=== PATIENT | female | born 1950 | race Caucasian/White ===

== ENCOUNTER 2022-05-20 09:02 | Inpatient (IN) ==
[~2022-05-20 09:02] MED LIST: Buffered Lidocaine 1% SYRIN 1 ml INTRADERM ONE; Dexamethasone IV 4 MG/ML VIAL 1 ml VIAL ONE; Famotidine IV 10 MG/ML 2 ml VIAL (20 mg) IV ONE; Lactated Ringers 1000 ml BAG 1,000 ML IV SCH; Lidocaine 2% PF 5 ML VIAL ONE; Midazolam 5 mg/5 ml VIAL 1 mg/ml 5 ml VIAL (5 mg) ONE; Ondansetron 4 mg VIAL 2 MG/ML 2 ml VIAL ONE; Phenylephrine IV 10 MG/ML 1 ml VIAL ONE; Scopolamine 1 mg/72hr PATCH TRANSDERM ONE; Sterile Water for Inj 10 ML ONE; fentaNYL 100 mcg/2 ml 50 MCG/ML VIAL ONE
[2022-05-20] MEDS ORDERED: Scopolamine 1 mg/72hr PATCH ONE (09:08)
[2022-05-20] MEDS ORDERED: ceFAZolin 2 GM PREMIX 2 GM/50 ML BAG ONE (09:08)
[2022-05-20] MEDS ORDERED: Famotidine IV 10 MG/ML 2 ml VIAL (20 mg) ONE (09:08)
[2022-05-20] MEDS ORDERED: fentaNYL 100 mcg/2 ml 50 MCG/ML VIAL ONE (10:15)
[2022-05-20] MEDS ORDERED: Midazolam 2 mg/2 ml VIAL 1 mg/ml 2 ml VIAL (2 mg) ONE (10:16)
[2022-05-20] MEDS ORDERED: ROPIVACAINE 5 MG/ML 30 ML BTL (0.5%) ONE ×2 (10:17→10:55)
[2022-05-20] MEDS ORDERED: Dextrose 50% Syringe 50 ml 25 GM/50 ML SYRINGE IV PUSH PRN (10:28)
[2022-05-20] MEDS ORDERED: Naloxone 0.4 mg VIAL 0.4 mg/ml 1 ml VIAL IV PRN (11:31)
[2022-05-20] MEDS ORDERED: fentaNYL 100 mcg/2 ml 50 MCG/ML VIAL IV PRN (11:31)
[2022-05-20] MEDS ORDERED: oxyCODONE/Acetamin 5/325 mg TAB PO PRN (11:31)
[2022-05-20] MEDS ORDERED: Propofol 10 MG/ML 20 ML BTL ONE (13:35)
[2022-05-20] MEDS ORDERED: Ondansetron ODT 4 mg TAB 4 MG TAB PO PRN (14:07)
[2022-05-20] MEDS ORDERED: Magnesium Hydroxide LIQ 30 ML UDC PO PRN (14:07)
[2022-05-20] MEDS ORDERED: Ondansetron 4 mg VIAL 2 MG/ML 2 ml VIAL IV PRN (14:07)
[2022-05-20] MEDS ORDERED: Lactulose 30 ml UDC PO PRN (14:07)
[2022-05-20] MEDS ORDERED: Morphine 2 MG/ML SYRINGE IV PRN (14:07)
[2022-05-20] MEDS ORDERED: Albuterol HFA INHALER 8 gm MDI INH PRN (14:48)
[2022-05-20] MEDS: Lactated Ringers 1000 ml BAG 1,000 ML IV SCH (16:38)
[2022-05-20] MEDS: Magnesium Hydroxide LIQ 30 ML UDC PO SCH (20:06)
[2022-05-20] MEDS: ceFAZolin 1 GM ADVAN 1 GM in NS 0.9% 50 ML 50 ML IVPB SCH (20:35)
[2022-05-20] MEDS ORDERED: CMC:Simvastatin 20 mg TAB (NF) PO SCH (21:00)
[2022-05-21] MEDS: Lactated Ringers 1000 ml BAG 1,000 ML IV SCH (03:02)
[2022-05-21] MEDS: ceFAZolin 1 GM ADVAN 1 GM in NS 0.9% 50 ML 50 ML IVPB SCH ×2 (04:44→11:45)
[2022-05-21 06:01] LABS: Hematocrit 29 % (35-47); Hemoglobin 9.7 g/dL (12.0-16.0); Mean Platelet Volume 7.2 fL (7.4-10.4); Platelet Count 222 10^3/uL (150-450)
[2022-05-21 06:57] LABS: Calcium 8.5 mg/dL (8.6-10.3); Potassium 4.5 mmol/L (3.5-5.0); eGFR CKD-EPI 95.5 (>60)
[2022-05-21] MEDS: Magnesium Hydroxide LIQ 30 ML UDC PO SCH (08:14)
[2022-05-21] MEDS ORDERED: Vitamin THERAPEUTIC TAB PO SCH (09:00)
[2022-05-21] MEDS ORDERED: Multivitamins/Minerals TAB PO SCH (09:00)
[2022-05-21] MEDS ORDERED: CMC:SitaGLIPtin 100 mg TAB (NF) PO SCH (09:00)
[2022-05-21 11:38] VITALS: BP 103/64
== END 2022-05-21 14:00 | disposition home or self-care (01) | DRG 470 ==
LOC: INTOOBSV 09:02 → AA 09:02 → SSU 16:08
PROVIDERS: ADMIT Orthopaedic Surgery Adult Reconstructive Orthopaedic Surgery; ATTEND Orthopaedic Surgery Adult Reconstructive Orthopaedic Surgery

== ENCOUNTER 2023-01-09 17:16 | Observation (INO) ==
[2023-01-09 18:39] LABS: ABS Lymphocytes 1.5 10^3/uL (1.0-4.8); ABS Monocytes 0.8 10^3/uL (0.0-0.9); ABS Neutrophils 11.5 10^3/uL (1.5-7.6); ABS Nucleated RBC 0.01 10^3/ul; Eosinophil % 0.3 %; Hematocrit 35.4 % (35-45); Hemoglobin 11.6 g/dL (11.5-14.3); Lymphocyte % 11.1 %; Mean Corpuscular Hemoglobin 26.4 pg (27-33); Mean Corpuscular Hgb Conc 32.7 g/dL (31-36); Mean Corpuscular Volume 80.5 fL (80-97); Mean Platelet Volume 7.8 fL (7.5-11.2); Platelet Count 337 10^3/uL (150-450); Red Cell Distribution Width 14.1 % (12-17)
[2023-01-09] MEDS ORDERED: NS 0.9% 1000 ml BAG 1,000 ML IV ONE ×2 (18:41→19:36)
[2023-01-09 18:44] LABS: INR 1.04 (0.88-1.18)
[2023-01-09 18:56] LABS: Albumin 4.1 g/dL (3.2-5.2); Albumin/Globulin Ratio 1.6 (1-3); Calcium 9.7 mg/dL (8.6-10.3); Creatinine, Serum 0.68 mg/dL (0.51-0.95); Globulin 2.6 g/dL (2-4); Magnesium 1.5 mg/dL (1.9-2.7); Potassium 3.9 mmol/L (3.5-5.0); Total Bilirubin 0.3 mg/dL (0.2-1.0); Total Protein 6.7 g/dL (6.4-8.9); eGFR CKD-EPI 92.5 (>60)
[2023-01-09] MEDS ORDERED: Magnesium Sulfate 2 gm BAG 2 GM/50 ML BAG IVPB ONE (19:36)
[2023-01-09] MEDS ORDERED: Albuterol HFA INHALER 8 gm MDI INH PRN (20:06)
[2023-01-09] MEDS ORDERED: Dextrose 50% Syringe 50 ml 25 GM/50 ML SYRINGE IV PUSH PRN (20:10)
[2023-01-09 20:15] LABS: High Sensitivity Troponin 1 Hr 4 pg/mL (<15)
[2023-01-09 20:53] LABS: Urine Appearance Cloudy; Urine Bilirubin Negative (Negative); Urine Blood 1+ (Negative); Urine Color Yellow; Urine Glucose 3+(>=500 mg/dL) (Negative); Urine Ketones 1+ (Negative); Urine Nitrite Positive (Negative); Urine Protein Negative (Negative); Urine Specific Gravity 1.015 (1.002-1.030); Urine Urobilinogen Negative (Negative)
[2023-01-09 21:22] LABS: Urine Bacteria Absent (Absent); Urine Red Blood Cell 1+(3-5/hpf) (Absent); Urine Squamous Epithelial Cell Present (Absent); Urine White Blood Cell 3+(>20/hpf) (Absent)
[2023-01-10 04:53] LABS: ABS Eosinophils 0.1 10^3/uL (0.0-0.5); ABS Monocytes 0.7 10^3/uL (0.0-0.9); ABS Neutrophils 5.5 10^3/uL (1.5-7.6); Eosinophil % 1.4 %; Hematocrit 31.8 % (35-45); Hemoglobin 10.6 g/dL (11.5-14.3); Lymphocyte % 24.2 %; Mean Corpuscular Hemoglobin 26.7 pg (27-33); Mean Corpuscular Hgb Conc 33.3 g/dL (31-36); Mean Corpuscular Volume 80.2 fL (80-97); Mean Platelet Volume 7.5 fL (7.5-11.2); Platelet Count 309 10^3/uL (150-450); Red Blood Count 3.97 10^6/uL (3.63-4.92); Red Cell Distribution Width 14.1 % (12-17); White Blood Count 8.3 10^3/uL (3.8-11.8)
[2023-01-10 05:10] LABS: Calcium 8.8 mg/dL (8.6-10.3); Creatinine, Serum 0.45 mg/dL (0.51-0.95); eGFR CKD-EPI 102.2 (>60)
[2023-01-10 14:54] VITALS: BP 141/70
== END 2023-01-10 14:55 | disposition home or self-care (01) ==
LOC: ED 17:16 → EDHOLD 20:04 → INTOOBSV 20:04 → SUATTDRO 20:04 → EDHOLD 01-10 14:54
PROVIDERS: ADMIT Internal Medicine; ATTEND Hospitalist